=== PATIENT | male | born 1995 | race Caucasian/White ===

== ENCOUNTER 2018-07-10 10:37 | Emergency (ER) | payer MEDICAID ==
--- NOTE | 2018-07-10 11:06 | EDM.PDOC ---
ED HPI GENERAL MEDICAL PROBLEM - General Chief Complaint: Upper Extremity Injury/Pain Stated Complaint: RT SHOULDER PAIN Time Seen by Provider: 07/10/18 10:59 Source of Information: Reports: Patient, RN Notes Reviewed History Limitations: Reports: No Limitations - History of Present Illness INITIAL COMMENTS - FREE TEXT/NARRATIVE: Patient is a 23 year old male who presents to the ED for the evaluation of right shoulder pain. He notes this has been present for around 5 months now. He characterizes a muscle spasm that produces a sharp stabbing type of pain that comes and goes. He states that any type of movement aggravates this and massage makes it better for a while. He did take ibuprofen (400 mg 2-3 times/day) for a while for this but said that this did not provide much relief. He denies any trauma to the shoulder. He further denies any numbness/tingling or weakness in the extremity. He would rate his pain at a 4/10. Right Shoulder Pain Score (Numeric/FACES): 4 - Related Data Allergies Allergy/AdvReac Type Severity Reaction Status Date / Time No Known Allergies Allergy Verified 07/10/18 10:45 Home Meds: Home Meds Orphenadrine [Norflex] 100 mg PO BID PRN #30 tab 07/10/18 [Rx] Past Medical History - Past Health History Medical/Surgical History: Denies Medical/Surgical History Social & Family History - Tobacco Use Smoking Status *Q: Current Every Day Smoker Years of Tobacco use: 5 Packs/Tins Daily: 0.5 - Caffeine Use Caffeine Use: Reports: Energy Drinks, Soda - Recreational Drug Use Recreational Drug Use: No Review of Systems - Review of Systems Review Of Systems: See Below Constitutional: Reports: No Symptoms Eyes: Reports: No Symptoms Ears: Reports: No Symptoms Nose: Reports: No Symptoms Mouth/Throat: Reports: No Symptoms Respiratory: Reports: No Symptoms Cardiovascular: Reports: No Symptoms GI/Abdominal: Reports: No Symptoms Genitourinary: Reports: No Symptoms Musculoskeletal: Reports: Shoulder Pain (right) Skin: Reports: No Symptoms Neurological: Denies: Numbness, Pre-Existing Deficit, Tingling Psychiatric: Reports: No Symptoms ED EXAM, GENERAL - Physical Exam Exam: See Below Free Text/Narrative:: exam limited to right upper extremities Exam Limited By: No Limitations General Appearance: Alert, WD/WN, No Apparent Distress Respiratory/Chest: No Respiratory Distress, Lungs Clear, Normal Breath Sounds, No Accessory Muscle Use, Chest Non-Tender Cardiovascular: Normal Peripheral Pulses, Regular Rate, Rhythm, No Murmur Extremities: Normal Inspection, Normal Range of Motion, Non-Tender, Normal Capillary Refill Neurological: Alert, Oriented, Normal Cognition, Normal Reflexes, No Motor/ Sensory Deficits Psychiatric: Normal Affect, Normal Mood Skin Exam: Warm, Dry, Intact, Normal Color, No Rash Course - Vital Signs Last Recorded V/S: Last Vital Signs Temp 97.6 F 07/10/18 10:45 Pulse 70 07/10/18 10:45 Resp 18 07/10/18 10:45 BP 127/74 07/10/18 10:45 Pulse Ox 98 07/10/18 10:45 - Orders/Labs/Meds Meds: Medications Discontinued Medications Generic Name Dose Route Start Last Admin Trade Name Macq PRN Reason Stop Dose Admin Ketorolac Tromethamine 30 mg 07/10/18 11:13 07/10/18 11:19 Toradol IM 07/10/18 11:14 30 mg ONETIME ONE Administration Orphenadrine Citrate 100 mg 07/10/18 11:13 07/10/18 11:19 Norflex PO 07/10/18 11:14 100 mg ONETIME ONE Administration - Re-Assessments/Exams Free Text/Narrative Re-Assessment/Exam: 07/10/18 11:21 Pt presents to the ED for the evaluation of right shoulder pain. This is most likely d/t a muscle strain. Have ordered toradol 30mg IM and Norflex 100mg to see if this helps his pain. Will educate on the proper use and dosage of NSAIDs for pain relief, as he was using a suboptimal dose. Plan is to d/c with script for norflex and have him establish with a PCP of his choice. 07/10/18 11:49 Pt feels better and is ready for d/c. Departure - Departure Time of Disposition: 11:49 Disposition: Home, Self-Care 01 Condition: Fair Clinical Impression: Muscle strain of right shoulder Qualifiers: Encounter type: initial encounter Qualified Code(s): S46.911A - Strain of unspecified muscle, fascia and tendon at shoulder and upper arm level, right arm , initial encounter - Discharge Information *PRESCRIPTION DRUG MONITORING PROGRAM REVIEWED*: No *COPY OF PRESCRIPTION DRUG MONITORING REPORT IN PATIENT LOUISE: No Prescriptions: Orphenadrine [Norflex] 100 mg PO BID PRN #30 tab PRN Reason: Muscle Spasm Instructions: Muscle Strain, [id number] Referrals: PCP,None [Primary Care Provider] - Forms: ED Department Discharge, ED Return to Work/School Form Additional Instructions: You have been evaluated in the ED for your right shoulder pain. This is likely caused by a strain of one of your shoulder muscles. Treatment is ibuprofen 600-800mg every 6 hours while awake (do not exceed 3200mg in one day), along with Norflex 100 mg (muscle relaxer) two times daily for muscle spasms. The norflex script has been sent to [facility] in [place]. If massage helps the pain, please feel free to do so as needed. Recommend that you set up care with primary care provider for chronic management of your shoulder pain. Please call [phone] to set up an appointment with a provider of your choosing. Please return to ED if your symptoms change or worsen.
[2018-07-10] MEDS ORDERED: Ketorolac 30 MG/ML SDV IM ONE (11:13)
[2018-07-10] MEDS ORDERED: Orphenadrine 100 MG Tab.ER PO ONE (11:13)
== END 2018-07-10 11:59 | disposition home or self-care (01) ==
LOC: JD.ED 10:37
DX: S46.911A Strain of unspecified muscle, fascia and tendon at shoulder and upper arm level, right arm, initial encounter (principal); F17.210 Nicotine dependence, cigarettes, uncomplicated; X58.XXXA Exposure to other specified factors, initial encounter; Z79.899 Other long term (current) drug therapy
CPT/HCPCS: 96372; 99283; A9270; J1885